=== PATIENT | male | born 1935 | race Caucasian/White ===

== ENCOUNTER 2017-01-03 06:25 | Emergency (ER) | payer MEDICARE, BC ==
[2006-06-08 23:25] VITALS: BP 98/57
[~2017-01-03] VITALS: Ht 162.6 cm; Wt 52.3 kg
[~2017-01-03 06:25] MED LIST: AMOXICILLIN 8751 TAB; ASPIRIN 32325 MG/TAB PO; CARDIZEM120 MG PO; DEBROX OT; DEPO-TESTOS100 MG/ML IM; DHA PO; DOXYCYCLINE 10100 MG PO; FLOMAX 0.40.4 MG/CAP PO; FORTEO250 MCG/ML SC; GLUCOSAMINE & C1 TAB PO; IRON325 MG PO; LEVAQUIN 5500 MG/TA1 PO; MULTAQ400 MG PO; MULTIPLE VITAMI1 CAP PO; NATURE'S BLEN5000 IU PO; NORCO 325 MG-51 TAB PO; OMEGA-3 1000 MG1 CAP PO; OPTIMUM AC500 Millio PO; OSTEOMATRIX PO; PHARMASSURE SA160 MG PO; PREDNISONE10 MG PO; PRIL40 PO; PROSTATE REVIVE PO; SINGULAIR 110 MG/TAB PO; TYLENOL 325MG325 MG PO; ULTRAM 50MG TAB50 MG PO; VALTREX1 GM PO; VTAMINC250TA PO; ZYRTEC 10MG10 MG PO; [UNRECOGNIZED DRUG - OTHER] PO; [UNRECOGNIZED DRUG - OTHER] PO; [UNRECOGNIZED DRUG - OTHER] PO
[2017-01-03 06:27] VITALS: BP 135/93; TEMP 98.3
[2017-01-03 07:33] LABS: BASO % 0.4 % (0.0-2.0); EOS % 0.6 % (0-4.0); GRAN % 64.6 % (42.2-75.2); HEMOGLOBIN 15.4 g/dl (13.5-18.0); LYMPH % 21.2 % (20.0-51.0); MEAN CELL VOLUME 101 fl (80.0-100.0); MEAN CORPUSCULAR HEMOGLOBIN 36 pg (27.0-31.0); MEAN CORPUSCULAR HGB CONC 35 g/dl (33.0-37.0); MEAN PLATELET VOLUME 8.8 fl (7.4-10.4); MONO # 0.6 (0.1-0.6); PLATELET COUNT 185 K/mm3 (130-400); RED BLOOD COUNT 4.34 M/mm3 (4.20-5.60); REDCELL DISTRIBUTION WIDTH-CV 13.4 % (11.5-14.5); WHITE BLOOD COUNT 4.7 K/mm3 (4.8-10.8)
[2017-01-03 07:46] LABS: PH 7 (5-8); SQUAMOUS EPITHELIAL None Seen /hpf; URINE APPEARANCE Hazy; URINE BACTERIA None Seen /hpf; URINE BILIRUBIN Negative (NEGATIVE); URINE BLOOD Negative (NEGATIVE); URINE COLOR Yellow; URINE GLUCOSE Negative (NEGATIVE); URINE KETONE Negative (NEGATIVE); URINE RBC 0-2 /hpf; URINE UROBILINOGEN Negative (NEGATIVE); URINE WBC 0-2 /hpf
[2017-01-03 07:47] LABS: ADJUSTED CALCIUM 9.2 mg/dL (8.4-10.2); ALANINE AMINOTRANSFERASE 28 U/L (21-72); ALBUMIN 3.9 gm/dL (3.5-5.0); ALKALINE PHOSPHATASE 42 U/L (50-136); ANION GAP 7 mmol/L (7-16); BILIRUBIN,TOTAL 1.2 mg/dL (0.0-1.0); BLOOD UREA NITROGEN 15 mg/dL (9-20); C-REACTIVE PROTEIN < 0.5 mg/dL (0.0-0.9); CALCIUM 9.1 mg/dL (8.4-10.2); CARBON DIOXIDE 29 mmol/L (22-30); CHLORIDE 95 mmol/L (98-107); CREATININE, serum 0.71 mg/dL (0.66-1.25); GLUCOSE 84 mg/dL (74-106); POTASSIUM 4.2 mmol/L (3.4-5.0); SODIUM 131 mmol/L (137-145)
[2017-01-03] MEDS ORDERED: DEBROX OT (07:55)
[2017-01-03] MEDS ORDERED: EPA FISH OIL1 SGL PO (07:55)
[2017-01-03] MEDS ORDERED: MULTIPLE VITAMI1 CAP PO (07:58)
[2017-01-03] MEDS ORDERED: VITAMIND3 5000 PO (07:58)
[2017-01-03] MEDS ORDERED: PROBIOTIC FORMU1 CAP PO (08:02)
[2017-01-03] MEDS ORDERED: CALCIUM 600/VIT1 CA1 PO (08:03)
[2017-01-03] MEDS ORDERED: CARDIZEM 30MG T30 MG PO (08:03)
[2017-01-03 08:20] VITALS: PULSE 72
== END 2017-01-03 08:21 | disposition home or self-care (01) ==
LOC: COL.ER 06:25
PROVIDERS: Nurse Practitioner
DX: R30.0 Dysuria (principal); R33.9 Retention of urine, unspecified; M85.80 Other specified disorders of bone density and structure, unspecified site; Z95.0 Presence of cardiac pacemaker; Z79.82 Long term (current) use of aspirin; Z87.39 Personal history of other diseases of the musculoskeletal system and connective tissue; Z90.79 Acquired absence of other genital organ(s); Z98.890 Other specified postprocedural states

== ENCOUNTER 2017-04-09 12:13 | Emergency (ER) | payer MEDICARE, BC ==
[2006-06-08 23:25] VITALS: BP 98/57
[~2017-04-09] VITALS: Ht 162.6 cm; Wt 54.5 kg
[~2017-04-09 12:13] MED LIST changes: +CALCIUM 600/VIT1 CA1 PO; +CARDIZEM 30MG T30 MG PO; +EPA FISH OIL1 SGL PO; +PROBIOTIC FORMU1 CAP PO; +VITAMIND3 5000 PO
[2017-04-09 12:14] VITALS: TEMP 98
[2017-04-09 14:21] VITALS: BP 130/76; PULSE 82
== END 2017-04-09 14:30 | disposition home or self-care (01) ==
LOC: COL.ER 12:13
DX: S42.102A Fracture of unspecified part of scapula, left shoulder, initial encounter for closed fracture (principal); Z95.0 Presence of cardiac pacemaker; X58.XXXA Exposure to other specified factors, initial encounter

== ENCOUNTER → 2017-06-03 | Outpatient (REF) ==
[~2017-06-03] MED LIST changes: +ALMACONE 360 M360 ML PO; +CELEXA10 MG PO; +MILK OF MA400 MG/52 PO; +MOTRIN 200200 MG/TAB PO; +PROBIOTIC GOLD1 EACH PO; +REMERON 15M15 MG/TA1 PO
[2017-06-03 13:07] LABS: COLLECTION METHOD CLEAN CATCH
[2017-06-03 13:16] LABS: BASO % 0.2 % (0.0-2.0); GRAN # 7.8 (1.4-6.5); GRAN % 84.3 % (42.2-75.2); HEMATOCRIT 39.5 % (42.0-52.0); HEMOGLOBIN 13.8 g/dl (13.5-18.0); LYMPH # 0.6 (1.2-3.4); LYMPH % 6.6 % (20.0-51.0); MEAN CELL VOLUME 103 fl (80.0-100.0); MEAN CORPUSCULAR HEMOGLOBIN 36 pg (27.0-31.0); MEAN CORPUSCULAR HGB CONC 35 g/dl (33.0-37.0); MEAN PLATELET VOLUME 8.8 fl (7.4-10.4); MONO # 0.8 (0.1-0.6); MONO % 8.6 % (1.7-9.3); PLATELET COUNT 209 K/mm3 (130-400); RED BLOOD COUNT 3.85 M/mm3 (4.20-5.60); WHITE BLOOD COUNT 9.2 K/mm3 (4.8-10.8)
[2017-06-03 13:34] LABS: PH 8 (5-8); SQUAMOUS EPITHELIAL None Seen /hpf; URINE APPEARANCE Hazy; URINE BACTERIA Rare /hpf; URINE BILIRUBIN Negative (NEGATIVE); URINE BLOOD 3+ (NEGATIVE); URINE COLOR Yellow; URINE GLUCOSE Negative (NEGATIVE); URINE KETONE Negative (NEGATIVE); URINE LEUKOCYTE ESTERASE 2+ (NEGATIVE); URINE PROTEIN(semi-quant) 2+ (NEGATIVE); URINE RBC 20-50 /hpf; URINE UROBILINOGEN >=4.0 mg/dL (NEGATIVE); URINE WBC 20-50 /hpf
[2017-06-03 13:49] LABS: CALCIUM 9.3 mg/dL (8.4-10.2); CREATININE, serum 0.71 mg/dL (0.66-1.25); POTASSIUM 3.9 mmol/L (3.4-5.0)
== END ==
LOC: ZCOL.LAB 13:03
PROVIDERS: Internal Medicine
DX: E87.1 Hypo-osmolality and hyponatremia (principal); R82.99 Other abnormal findings in urine

== ENCOUNTER 2017-06-26 13:48 | Outpatient (CLI) | payer MEDICARE, BC ==
[2006-06-08 23:25] VITALS: BP 98/57
[~2017-06-26] VITALS: Ht 162.6 cm; Wt 53.8 kg
[2017-06-26] MEDS ORDERED: CELEXA10 MG PO (14:56)
== END 2017-06-26 16:27 | disposition home or self-care (01) ==
LOC: EUO 13:48
DX: M81.0 Age-related osteoporosis without current pathological fracture (principal)
CPT/HCPCS: J3489

== ENCOUNTER → 2017-07-05 | Outpatient (CLI) | payer MEDICARE, BC | LOC: COL.RAD 10:28 | DX: K57.30 Diverticulosis of large intestine without perforation or abscess without bleeding (principal) | CPT/HCPCS: J7050; Q9967 ==

== ENCOUNTER 2017-07-09 14:48 | Emergency (ER) | payer MEDICARE, BC ==
[2006-06-08 23:25] VITALS: BP 98/57
[~2017-07-09] VITALS: Ht 162.6 cm; Wt 53.6 kg
[2017-07-09 14:50] VITALS: BP 117/74; PULSE 92; TEMP 97.4
[2017-07-09 16:18] LABS: BASO % 0.4 % (0.0-2.0); EOS % 0.4 % (0-4.0); GRAN # 3.5 (1.4-6.5); GRAN % 64.7 % (42.2-75.2); HEMATOCRIT 41.1 % (42.0-52.0); HEMOGLOBIN 14.6 g/dl (13.5-18.0); LYMPH # 1.1 (1.2-3.4); MEAN CELL VOLUME 101 fl (80.0-100.0); MEAN CORPUSCULAR HEMOGLOBIN 36 pg (27.0-31.0); MEAN CORPUSCULAR HGB CONC 36 g/dl (33.0-37.0); MEAN PLATELET VOLUME 8.9 fl (7.4-10.4); MONO # 0.8 (0.1-0.6); MONO % 14.1 % (1.7-9.3); PLATELET COUNT 200 K/mm3 (130-400); RED BLOOD COUNT 4.07 M/mm3 (4.20-5.60); REDCELL DISTRIBUTION WIDTH-CV 13.1 % (11.5-14.5)
[2017-07-09] MEDS ORDERED: OMEGA-3 1000 MG1 CAP PO (16:27)
[2017-07-09 16:56] LABS: ACETAMINOPHEN < 10 ug/mL (10-30); ALANINE AMINOTRANSFERASE 26 U/L (21-72); ALBUMIN 3.8 gm/dL (3.5-5.0); ALCOHOL(ethanol),MEDICAL < 10 mg/dL; ALKALINE PHOSPHATASE 51 U/L (50-136); ANION GAP 7 mmol/L (7-16); AST,SGOT 27 U/L (15-37); BILIRUBIN,TOTAL 0.8 mg/dL (0.0-1.0); BLOOD UREA NITROGEN 15 mg/dL (9-20); CALCIUM 8.6 mg/dL (8.4-10.2); CARBON DIOXIDE 28 mmol/L (22-30); CHLORIDE 90 mmol/L (98-107); CREATINE KINASE 75 U/L (55-170); CREATININE, serum 0.65 mg/dL (0.66-1.25); GLUCOSE 112 mg/dL (74-106); POTASSIUM 4.2 mmol/L (3.4-5.0); SALICYLATE < 1.0 mg/dL; SODIUM 125 mmol/L (137-145); TOTAL PROTEIN 6.7 gm/dL (6.4-8.2)
[2017-07-09 17:07] LABS: TROPONIN-I < 0.012 ng/mL (0.000-0.034)
[2017-07-09] MEDS ORDERED: SODIUM CHLORIDE1 GM PO (20:29)
== END 2017-07-09 21:47 ==
LOC: COL.ER 14:48
PROVIDERS: Emergency Medicine
DX: E87.1 Hypo-osmolality and hyponatremia (principal); R45.851 Suicidal ideations; I48.91 Unspecified atrial fibrillation; F03.90 Unspecified dementia, unspecified severity, without behavioral disturbance, psychotic disturbance, mood disturbance, and anxiety; M54.9 Dorsalgia, unspecified; G89.29 Other chronic pain; Z95.0 Presence of cardiac pacemaker; Z86.718 Personal history of other venous thrombosis and embolism; Z79.82 Long term (current) use of aspirin
CPT/HCPCS: J7040

== ENCOUNTER 2018-07-03 15:03 | Outpatient (CLI) | payer MEDICARE, BC ==
[2006-06-08 23:25] VITALS: BP 98/57
[~2018-07-03] VITALS: Ht 162.6 cm; Wt 86.6 kg
[~2018-07-03 15:03] MED LIST changes: +SODIUM CHLORIDE1 GM PO
[2018-07-03 15:30] VITALS: BP 110/58; PULSE 67; TEMP 97.8
== END 2018-07-03 16:14 | disposition home or self-care (01) ==
LOC: EUO 15:03
DX: M81.0 Age-related osteoporosis without current pathological fracture (principal)
CPT/HCPCS: J3489

== ENCOUNTER 2018-10-31 07:21 | Day surgery (SDC) | payer MEDICARE, BC ==
[2006-06-08 23:25] VITALS: BP 98/57
[~2018-10-31] VITALS: Ht 162.7 cm; Wt 55.0 kg
[2018-10-31] VITALS (10 sets, daily range): BP systolic 102–151; BP diastolic 57–90; PULSE 60–645; TEMP 97.5
[2018-10-31 08:10] LABS: HEMATOCRIT 40.6 % (42.0-52.0); HEMOGLOBIN 13.6 g/dl (13.5-18.0); MEAN CELL VOLUME 104 fl (80.0-100.0); MEAN CORPUSCULAR HEMOGLOBIN 35 pg (27.0-31.0); MEAN CORPUSCULAR HGB CONC 34 g/dl (33.0-37.0); MEAN PLATELET VOLUME 9.1 fl (7.4-10.4); PLATELET COUNT 219 K/mm3 (130-400); REDCELL DISTRIBUTION WIDTH-CV 13.8 % (11.5-14.5)
[2018-10-31 08:12] LABS: PROTHROMBIN TIME 11.5 SECONDS (9.7-12.8)
[2018-10-31 08:17] LABS: CALCIUM 9.3 mg/dL (8.4-10.2); CREATININE, serum 0.85 (0.66-1.25); POTASSIUM 4.6 mmol/L (3.4-5.0)
[2018-10-31] MEDS ORDERED: XYOSTED50 MG/0.5 SQ (08:53)
[2018-10-31] MEDS ORDERED: GLUCOSAMINE & C1 CA2 PO (08:56)
[2018-10-31] MEDS ORDERED: SODIUM CHLORIDE1 GM PO (09:01)
[2018-10-31] MEDS ORDERED: DEPO-TESTOS200 MG/M1 IM (09:02)
--- NOTE | 2018-10-31 11:40 | NUR ---
PLEASE SEE MERGE FOR ALL MEDICATION ADMINISTRATION TIMES, RASS ASSESSMENT DATA DURING AND POST PROCEDURE.
[2018-10-31] MEDS ORDERED: CEPHALEXIN500 M1 PO (12:18)
--- NOTE | 2018-10-31 12:35 | NUR ---
Pt returned to EU 12 per bed s/p gen change. Pt smita well per sugar laboratory assistant. Pt resting in bed.
--- NOTE | 2018-10-31 12:40 | NUR ---
Ice pack to L chest.
--- NOTE | 2018-10-31 14:35 | NUR ---
Pt has ambulated with walker and assist of 1. Pt has voided and smita PO intake s n/v.
--- NOTE | 2018-10-31 15:15 | NUR ---
PIV removed from L FA with catheter intact.
--- NOTE | 2018-10-31 15:25 | NUR ---
Pt discharged per w/c by nurse with [employer].
== END 2018-10-31 16:02 | disposition home or self-care (01) ==
LOC: COL.CAR 07:21
PROVIDERS: Internal Medicine Cardiovascular Disease
DX: Z45.010 Encounter for checking and testing of cardiac pacemaker pulse generator [battery] (principal); I49.5 Sick sinus syndrome; M81.0 Age-related osteoporosis without current pathological fracture; E83.119 Hemochromatosis, unspecified; I48.91 Unspecified atrial fibrillation
CPT/HCPCS: C1785; J0690; J2250; J3010; J7030

== ENCOUNTER 2019-01-10 10:16 | Emergency (ER) | payer MEDICARE, BC ==
[2006-06-08 23:25] VITALS: BP 98/57
[~2019-01-10] VITALS: Ht 162.6 cm; Wt 63.6 kg
[~2019-01-10 10:16] MED LIST changes: +CEPHALEXIN500 M1 PO; +DEPO-TESTOS200 MG/M1 IM; +GLUCOSAMINE & C1 CA2 PO; +XYOSTED50 MG/0.5 SQ
[2019-01-10 11:21] LABS: BASO % 0.4 % (0.0-2.0); EOS # 0.1 (0.0-0.7); GRAN # 3.1 (1.4-6.5); GRAN % 63.5 % (42.2-75.2); HEMATOCRIT 40.5 % (42.0-52.0); HEMOGLOBIN 13.8 g/dl (13.5-18.0); LYMPH # 1.2 (1.2-3.4); LYMPH % 23.9 % (20.0-51.0); MEAN CELL VOLUME 104 fl (80.0-100.0); MEAN CORPUSCULAR HEMOGLOBIN 35 pg (27.0-31.0); MEAN CORPUSCULAR HGB CONC 34 g/dl (33.0-37.0); MEAN PLATELET VOLUME 9.4 fl (7.4-10.4); MONO # 0.5 (0.1-0.6); MONO % 10.8 % (1.7-9.3); PLATELET COUNT 229 K/mm3 (130-400); RED BLOOD COUNT 3.91 M/mm3 (4.20-5.60); REDCELL DISTRIBUTION WIDTH-CV 13.8 % (11.5-14.5)
[2019-01-10 11:26] LABS: PROTHROMBIN TIME 12.2 SECONDS (9.7-12.8)
[2019-01-10 11:41] LABS: ALANINE AMINOTRANSFERASE 7 U/L (21-72); ALBUMIN 3.8 gm/dL (3.5-5.0); ALKALINE PHOSPHATASE 34 U/L (50-136); ANION GAP 9 mmol/L (7-16); AST,SGOT 25 U/L (15-37); BILIRUBIN,TOTAL 0.6 mg/dL (0.0-1.0); BLOOD UREA NITROGEN 22 mg/dL (9-20); CALCIUM 9.3 mg/dL (8.4-10.2); CARBON DIOXIDE 28 mmol/L (22-30); CHLORIDE 103 mmol/L (98-107); CREATININE, serum 0.72 (0.66-1.25); GLUCOSE 108 mg/dL (74-106); SODIUM 140 mmol/L (137-145)
[2019-01-10 11:45] LABS: C-REACTIVE PROTEIN < 0.5 mg/dL (0.0-0.9)
[2019-01-10 16:05] VITALS: BP 155/48; PULSE 72; TEMP 96.8
== END 2019-01-10 16:05 | disposition short-term general hospital (02) ==
LOC: COL.ER 10:16
PROVIDERS: Family Medicine
DX: I63.9 Cerebral infarction, unspecified (principal); I48.91 Unspecified atrial fibrillation; Z79.82 Long term (current) use of aspirin
CPT/HCPCS: J2997; Q9967

== ENCOUNTER → 2019-02-11 | Outpatient (CLI) | payer MEDICARE, BC | LOC: COL.LAB 20:45 | DX: Z43.1 Encounter for attention to gastrostomy (principal) ==

== ENCOUNTER → 2019-02-12 | Outpatient (CLI) | payer MEDICARE, BC ==
[2019-02-12 23:02] LABS: COLLECTION METHOD CLEAN CATCH
[2019-02-12 23:29] LABS: MUCOUS Present /lpf; PH 6 (5-8); SQUAMOUS EPITHELIAL 0-2 /hpf; URINE APPEARANCE Hazy; URINE BACTERIA None Seen /hpf; URINE BILIRUBIN Negative (NEGATIVE); URINE BLOOD Negative (NEGATIVE); URINE COLOR Yellow; URINE GLUCOSE Negative (NEGATIVE); URINE KETONE Negative (NEGATIVE); URINE LEUKOCYTE ESTERASE Trace (NEGATIVE); URINE NITRATE Negative (NEGATIVE); URINE PROTEIN(semi-quant) Negative (NEGATIVE); URINE RBC 0-2 /hpf
== END ==
LOC: ZCOL.LAB 17:52
PROVIDERS: Internal Medicine
DX: E29.1 Testicular hypofunction (principal)

== ENCOUNTER 2019-04-11 09:29 | Day surgery (SDC) | payer MEDICARE, BC ==
[2006-06-08 23:25] VITALS: BP 98/57
[~2019-04-11] VITALS: Ht 162.6 cm; Wt 51.3 kg
--- NOTE | 2019-04-11 10:20 | NUR ---
Pt brought by wheelchair to [facility] with friend from [employer]. Pt here for a PEG tube replacement.
--- NOTE | 2019-04-11 11:30 | NUR ---
Dr. Vivas in admission room to visit with patient. Dr. Vivas clarifies with patient that the procedure will be a PEG tube removal without replacement. The patient agrees. The PEG tube is removed and the doctor covers the site with 4x4 gauze pads. Pt explains that the removal was painful. There is less than 1 mL red drainage at the PEG tube site. This RN applies paper tape to the four sides of the gauze pads.
[2019-04-11] MEDS ORDERED: MIRALAX PA17 GM/Dose PO (11:39)
[2019-04-11] MEDS ORDERED: PANTOPRAZOLE PO (11:42)
[2019-04-11] MEDS ORDERED: MIRTAZAPINE7.5 MG PO (11:43)
[2019-04-11] MEDS ORDERED: ELIQUIS 2.5 PO (11:49)
[2019-04-11] MEDS ORDERED: CARDIZEM 30MG T30 MG PO (11:50)
[2019-04-11] MEDS ORDERED: MULTAQ400 MG PO (11:52)
[2019-04-11] MEDS ORDERED: ENSURE PLUS 24240 ML PO (11:55)
[2019-04-11] MEDS ORDERED: TYLENOL SU650 MG/SUP RC (11:57)
[2019-04-11] MEDS ORDERED: DULCOLAX S10 MG/SUPP RC (11:57)
[2019-04-11] MEDS ORDERED: IMODIUM 2MG CAPS2 MG PO (11:58)
[2019-04-11] MEDS ORDERED: ROXICODONE 55 MG/TAB PO (11:59)
[2019-04-11 12:10] VITALS: BP 127/96; PULSE 75; TEMP 98.4
--- NOTE | 2019-04-11 12:15 | NUR ---
[facility] Handed to pt are a thank you card and discharge instructions. All questions answered to their satisfaction.
--- NOTE | 2019-04-11 12:20 | NUR ---
Pt transferred out of hospital via wheelchair, [facility], and this RN to private vehicle driven by [employer] transporter.
--- NOTE | 2019-04-11 12:21 | NUR ---
Nurse at [facility] called regarding report on pt. All questions answered to her satisfaction. Informed her that instructions for site care were sent with patient.
[2019-04-11 12:51] VITALS: BP 123/73; PULSE 63; TEMP 98.4
== END 2019-04-11 12:20 | disposition home or self-care (01) ==
LOC: SDCO 09:29
DX: K94.23 Gastrostomy malfunction (principal); I69.391 Dysphagia following cerebral infarction; F32.4 Major depressive disorder, single episode, in partial remission; I48.91 Unspecified atrial fibrillation; E87.1 Hypo-osmolality and hyponatremia; M19.90 Unspecified osteoarthritis, unspecified site; N40.0 Benign prostatic hyperplasia without lower urinary tract symptoms; Z79.01 Long term (current) use of anticoagulants; K21.9 Gastro-esophageal reflux disease without esophagitis; K58.9 Irritable bowel syndrome, unspecified; Z86.718 Personal history of other venous thrombosis and embolism; Z95.0 Presence of cardiac pacemaker; Z82.49 Family history of ischemic heart disease and other diseases of the circulatory system; Z82.3 Family history of stroke

== ENCOUNTER 2021-12-31 17:14 | Emergency (ER) | payer MEDICARE, BC ==
[~2021-12-31] VITALS: Ht 162.6 cm; Wt 54.5 kg
[~2021-12-31 17:14] MED LIST changes: +DULCOLAX S10 MG/SUPP RC; +ELIQUIS 2.5 PO; +ENSURE PLUS 24240 ML PO; +IMODIUM 2MG CAPS2 MG PO; +MIRALAX PA17 GM/Dose PO; +MIRTAZAPINE7.5 MG PO; +PANTOPRAZOLE PO; +ROXICODONE 55 MG/TAB PO; +TYLENOL SU650 MG/SUP RC
[2021-12-31 17:25] VITALS: TEMP 97.3
[2021-12-31 19:53] VITALS: BP 119/69; PULSE 60
== END 2021-12-31 20:00 | disposition home or self-care (01) ==
LOC: COL.ER 17:14
DX: M25.511 Pain in right shoulder (principal); Z98.890 Other specified postprocedural states